=== PATIENT | female | born 1985 | race Caucasian/White ===

== ENCOUNTER 2020-09-08 14:35 | Emergency (ER) | payer OTHER ==
[~2020-09-08] VITALS: Ht 167.6 cm; Wt 48.1 kg
== END 2020-09-08 20:33 | disposition home or self-care (01) ==
LOC: ER 14:35
DX: J06.9 Acute upper respiratory infection, unspecified (principal); J32.8 Other chronic sinusitis; Z03.818 Encounter for observation for suspected exposure to other biological agents ruled out

== ENCOUNTER 2020-10-14 12:58 | Emergency (ER) | payer OTHER ==
[~2020-10-14] VITALS: Ht 160 cm; Wt 48.5 kg
== END 2020-10-14 16:49 | disposition home or self-care (01) ==
LOC: ER 12:58
DX: B34.9 Viral infection, unspecified (principal); Z11.52 Encounter for screening for COVID-19

== ENCOUNTER 2020-10-26 12:16 | Emergency (ER) | payer OTHER ==
[~2020-10-26] VITALS: Ht 160 cm; Wt 47.6 kg
== END 2020-10-26 16:52 | disposition home or self-care (01) ==
LOC: ER 12:16
DX: B34.9 Viral infection, unspecified (principal); B96.0 Mycoplasma pneumoniae [M. pneumoniae] as the cause of diseases classified elsewhere

== ENCOUNTER 2021-01-06 07:00 | Emergency (ER) | payer OTHER ==
[~2021-01-06] VITALS: Ht 160 cm; Wt 48.1 kg
[2021-01-06] MEDS ORDERED: ORPHENADRINE C100 MG PO (10:35)
[2021-01-06] MEDS ORDERED: DICLOFENAC POTA50 MG PO (10:35)
== END 2021-01-06 10:50 | disposition home or self-care (01) ==
LOC: ER 07:00
DX: M94.0 Chondrocostal junction syndrome [Tietze] (principal)

== ENCOUNTER → 2021-07-02 | Emergency (ER) | payer OTHER ==
[~2021-07-02] VITALS: Ht 160 cm; Wt 46.3 kg
[~2021-07-02] MED LIST: DICLOFENAC POTA50 MG PO; ORPHENADRINE C100 MG PO; PANADOL
== END | disposition home or self-care (01) ==
LOC: ER 16:09
DX: J06.9 Acute upper respiratory infection, unspecified (principal); Z20.822 Contact with and (suspected) exposure to COVID-19

== ENCOUNTER 2021-10-10 12:23 | Emergency (ER) | payer OTHER ==
[~2021-10-10] VITALS: Ht 160 cm; Wt 47.2 kg
[2021-10-10] MEDS ORDERED: ZITHROMAX500 MG PO (15:40)
== END 2021-10-10 16:50 | disposition home or self-care (01) ==
LOC: ER 12:23
DX: J06.9 Acute upper respiratory infection, unspecified (principal); Z20.822 Contact with and (suspected) exposure to COVID-19

== ENCOUNTER 2023-06-13 15:31 | Emergency (ER) | payer OTHER ==
[~2023-06-13] VITALS: Ht 160 cm; Wt 48.5 kg
[~2023-06-13 15:31] MED LIST changes: +ZITHROMAX500 MG PO
[2023-06-13] MEDS ORDERED: AMOX-CLAV 875-1 EAC1 PO (20:43)
[2023-06-13] MEDS ORDERED: TUSSIN100 MG/51 PO (20:44)
[2023-06-13] MEDS ORDERED: CHLORASEPTIC M118 ML MM (20:49)
[2023-06-13] MEDS ORDERED: CHLORASEPTIC177 M2 MM (20:50)
== END 2023-06-13 21:23 | disposition home or self-care (01) ==
LOC: ER 15:32
DX: J03.90 Acute tonsillitis, unspecified (principal); R53.81 Other malaise

== ENCOUNTER 2025-05-16 17:32 | Emergency (ER) | payer OTHER ==
[~2025-05-16] VITALS: Ht 157.5 cm; Wt 45.8 kg
[~2025-05-16 17:32] MED LIST changes: +AMOX-CLAV 875-1 EAC1 PO; +CHLORASEPTIC M118 ML MM; +CHLORASEPTIC177 M2 MM; +TUSSIN100 MG/51 PO
[2025-05-16] MEDS ORDERED: KETOROLAC TROMETHAMINE 60 MG VIAL IM ONE ×2 (18:29→18:30)
[2025-05-16] MEDS ORDERED: DEXAMETHASONE SODIUM PHOSPHATE 4 MG/ML VIAL ONE (18:29)
[2025-05-16] MEDS ORDERED: DEXAMETHASONE SODIUM PHOSPHATE 4 MG/ML VIAL IM ONE (18:30)
[2025-05-16 19:47] LABS: BASO % 0.6 % (0.1-1.2); EOS # 0.09 (0.04-0.54); EOS % 1.0 % (0.7-7.0); LYMPH # 2.41 (1.18-3.74); LYMPH % 27.8 % (19.3-53.1); MEAN PLATELET VOLUME 11.90 fl (9.4-12.4); MONO # 0.55 (0.24-0.82); MONO % 6.3 % (4.7-12.5); NEUT # 5.54 (1.56-6.13); NEUT % 63.8 % (34.0-71.1); RED CELL DISTRIBUTION WIDTH 13.0 % (11.6-14.4)
[2025-05-16 20:08] LABS: INR 1.04
[2025-05-16 20:22] LABS: URINE APPEARANCE Clear; URINE BILIRRUBIN Negative (NEGATIVE); URINE BLOOD Negative; URINE COLOR Yellow; URINE GLUCOSE Negative (NEGATIVE); URINE KETONE Negative (NEGATIVE); URINE LEUKOCYTE Negative; URINE NITRATE Negative; URINE PROTEIN Negative (NEGATIVE); URINE UROBILINOGEN 0.2 E.U./dl
[2025-05-16 20:26] LABS: URINE BACTERIA 29.9 uL (0.0-1933); URINE EPITHELIAL CELLS 2.4 uL (0.0-38.8)
[2025-05-16 20:32] LABS: URINE CAST 0.14 uL (0.0-1.40); URINE RBC 1.0 uL (0.0-20.8); URINE WBC 0.9 uL (0.0-23.2)
[2025-05-16 20:39] LABS: ALT/SGPT 24.0 U/L (12-78); AST/SGOT 21.0 U/L (15-37); BILIRUBIN TOTAL 0.2 mg/dL (0.3-1.2); BUN CREA RATIO 19.0 (7.0-25.0); CREATININE SERUM 0.74 mg/dL (0.55-1.02); GFR 87.83; GLOBULINA 3.9 G/DL (2.4-3.5); GLUCOSE FASTING 88.0 mg/dL (65-100); OSMOLALITY SERUM 277.0 MOSM/KG (275-295); TSH 3.03 uIU/mL (0.358-3.74)
[2025-05-16] MEDS ORDERED: NAPR500T14 PO (21:10)
== END 2025-05-16 22:00 | disposition home or self-care (01) ==
LOC: ER 17:33
DX: R07.89 Other chest pain (principal)